=== PATIENT | male | born 1960 | race Caucasian/White ===

== ENCOUNTER 2024-11-20 19:29 | Emergency (ER) | payer BC ==
[2024-11-20] MEDS ORDERED: Ketorolac Tromethamine 30 MG (1 mL) VIAL ONE (19:46)
== END 2024-11-20 21:33 | disposition home or self-care (01) ==
LOC: CSHERS 19:29
DX: S20.219A Contusion of unspecified front wall of thorax, initial encounter (principal); S60.051A Contusion of right little finger without damage to nail, initial encounter; I10 Essential (primary) hypertension; E11.9 Type 2 diabetes mellitus without complications; Z79.84 Long term (current) use of oral hypoglycemic drugs; W01.10XA Fall on same level from slipping, tripping and stumbling with subsequent striking against unspecified object, initial encounter; Y92.009 Unspecified place in unspecified non-institutional (private) residence as the place of occurrence of the external cause
CPT/HCPCS: 96372; 99283; J1885